=== PATIENT | female | born 1935 | race Caucasian/White ===

== ENCOUNTER 2017-12-29 16:26 | Inpatient (IN) | payer OTHER, MEDICARE ==
[~2017-12-29] VITALS: Ht 167.6 cm; Wt 75.0 kg
[2017-12-29 16:32] VITALS: BP_SYST 21; BP_SYST 211; BP_DIAS 99; PULSE 69; RESP 20; TEMP 98.3; O2SAT 93
[2017-12-29 16:38] VITALS: BP 203/79; PULSE 68; RESP 18; O2SAT 95
--- NOTE | 2017-12-29 16:45 | PD ---
HPI Chief Complaint: Fall Time Seen by Provider: 16:38 Travel History International Travel<30 days: No Contact w/Intl Traveler<30days: No Traveled to known affect area: No History of Present Illness HPI 82-year-old funys-huny-whkxatgg female with PMH of HTN presents to the ED for evaluation of 8/10 right arm pain. Pain is constant, sharp, worsened by attempted ROM. No alleviating factors reported. Onset approximately 45 minutes before arrival after the patient lost her balance and fell onto her right side on tile floor. She denies hitting her head or loss of consciousness. She does not take blood thinners. She has never injured the extremity before. Per EMS report she received 4 mg of morphine in route. She states that she went to a menu tasting around 2pm. PFSH Social History Tobacco Use: No Allergies-Medications (Allergen,Severity, Reaction): Coded Allergies: No Known Allergies (Verified Allergy, Unknown, 12/29/17) Reported Meds & Prescriptions Reported Meds & Active Scripts Active Reported Hydrochlorothiazide 12.5 Mg Cap 12.5 Mg PO DAILY Xanax (Alprazolam) 0.25 Mg Tab 0.25 Mg PO TID Vasotec (Enalapril Maleate) 20 Mg Tab 20 Mg PO BID Lovastatin 20 Mg Tab 20 Mg PO HS Omeprazole 20 Mg Tab 20 Mg PO DAILY Restoril (Temazepam) 30 Mg Cap 30 Mg PO HS PRN Synthroid (Levothyroxine Sodium) 75 Mcg Tab 75 Mcg PO DAILY Zyloprim (Allopurinol) 100 Mg Tab 100 Mg PO DAILY Calcitriol 0.25 Mcg Cap 0.25 Mcg PO DAILY Tenormin (Atenolol) 50 Mg Tab 50 Mg PO DAILY Hydrocodone-Acetamin 10-325 mg (Hydrocodone/Acetaminophen) 10 Mg-325 Mg Tablet 1 Tab PO Q8HR PRN Review of Systems Except as stated in HPI: all other systems reviewed are Neg Physical Exam Narrative GENERAL: Well-nourished, well-developed obese withe female in NAD. SKIN: Focused skin assessment warm/dry. HEAD: Normocephalic. EYES: No scleral icterus. No injection or drainage. NECK: Supple, trachea midline. No JVD or lymphadenopathy. CARDIOVASCULAR: Regular rate and rhythm without murmurs, gallops, or rubs. RESPIRATORY: Breath sounds equal bilaterally. No accessory muscle use. GASTROINTESTINAL: Abdomen soft, non-tender, nondistended. MUSCULOSKELETAL: No cyanosis, or edema. FOCUSED RIGHT UPPER EXTREMITY EXAM: 2+ radial pulse. Patient is able to wiggle the fingers. Tender to palpation with visible deformity in the mid humeral area. The right arm is in a sling which limits the exam. Neurovascularly intact distally. BACK: Nontender without obvious deformity. No CVA tenderness. Data Data Last Documented VS Vital Signs Date Time Temp Pulse Resp B/P (MAP) Pulse Ox O2 Delivery O2 Flow Rate FiO2 12/29/17 18:19 16 12/29/17 16:42 Room Air 12/29/17 16:38 68 203/79 (120) 95 12/29/17 16:32 98.3 Orders Orders Humerus (Min 2vws) (12/29/17 16:41) Ice/Cold Pack (12/29/17 16:41) Morphine Inj (Morphine Inj) (12/29/17 17:30) Ondansetron Inj (Zofran Inj) (12/29/17 17:38) Ondansetron Inj (Zofran Inj) (12/29/17 17:45) NPO (12/29/17 17:43) Morphine Inj (Morphine Inj) (12/29/17 18:30) Electrocardiogram (12/29/17 18:43) Complete Blood Count With Diff (12/29/17 18:43) Comprehensive Metabolic Panel (12/29/17 18:43) Prothrombin Time / Inr (Pt) (12/29/17 18:43) Act Partial Throm Time (Ptt) (12/29/17 18:43) Urinalysis - C+S If Indicated (12/29/17 18:43) Type And Screen (12/29/17 18:43) Chest, Single Ap (12/29/17 18:43) Iv Access Insert/Monitor (12/29/17 18:43) Oximetry (12/29/17 18:43) Ecg Monitoring (12/29/17 18:43) Consult Orthopedic (12/29/17 ) Support Splint (12/29/17 18:49) (Hub Use Only)Inp Phy Cons/Ref (12/29/17 ) Atenolol (Tenormin) (12/30/17 09:00) Enalapril (Vasotec) (12/29/17 21:00) Hydrochlorothiazide (Microzide) (12/30/17 09:00) Levothyroxine (Synthroid) (12/30/17 06:00) Pravastatin (Pravachol) (12/29/17 21:00) (Nf) Omeprazole (12/30/17 09:00) Admit To Inpatient (12/29/17 ) Vital Signs (Adult) Q4H (12/29/17 19:19) Activity Oob With Assistance (12/29/17 19:19) Diet Npo (12/30/17 Breakfast) Sodium Chlor 0.9% 1000 Ml Inj (Ns 1000 M (12/29/17 19:19) Sodium Chloride 0.9% Flush (Ns Flush) (12/29/17 19:30) Sodium Chloride 0.9% Flush (Ns Flush) (12/29/17 21:00) Acetaminophen (Tylenol) (12/29/17 19:30) Ondansetron Inj (Zofran Inj) (12/29/17 19:30) Basic Metabolic Panel (Bmp) (12/30/17 06:00) Complete Blood Count With Diff (12/30/17 06:00) Pt Request For Service (12/29/17 19:19) Case Management Consult (12/29/17 19:19) Scd Bilateral/Knee High SATHYA.BID (12/29/17 19:19) Naloxone Inj (Narcan Inj) (12/29/17 19:30) Docusate Sodium-Senna (Jamia-Colace) (12/29/17 21:00) Magnesium Hydroxide Liq (Milk Of Magnesi (12/29/17 19:30) Sennosides (Senokot) (12/29/17 19:30) Bisacodyl Supp (Dulcolax Supp) (12/29/17 19:30) Lactulose Liq (Lactulose Liq) (12/29/17 19:30) Inpatient Certification (12/29/17 ) Morphine Inj (Morphine Inj) (12/29/17 19:30) Admit Order (Ed Use Only) (12/29/17 19:24) Labs Laboratory Tests Test 12/29/17 18:50 White Blood Count 7.9 TH/MM3 Red Blood Count 4.41 MIL/MM3 Hemoglobin 13.6 GM/DL Hematocrit 40.7 % Mean Corpuscular Volume 92.2 FL Mean Corpuscular Hemoglobin 30.9 PG Mean Corpuscular Hemoglobin Concent 33.5 % Red Cell Distribution Width 14.8 % Platelet Count 170 TH/MM3 Mean Platelet Volume 7.9 FL Neutrophils (%) (Auto) 55.0 % Lymphocytes (%) (Auto) 39.3 % Monocytes (%) (Auto) 3.3 % Eosinophils (%) (Auto) 2.1 % Basophils (%) (Auto) 0.3 % Neutrophils # (Auto) 4.4 TH/MM3 Lymphocytes # (Auto) 3.1 TH/MM3 Monocytes # (Auto) 0.3 TH/MM3 Eosinophils # (Auto) 0.2 TH/MM3 Basophils # (Auto) 0.0 TH/MM3 CBC Comment DIFF FINAL Differential Comment Prothrombin Time 10.5 SEC Prothromb Time International Ratio 1.0 RATIO Activated Partial Thromboplast Time 23.9 SEC Blood Urea Nitrogen 28 MG/DL Creatinine 1.22 MG/DL Random Glucose 106 MG/DL Total Protein 6.9 GM/DL Albumin 3.7 GM/DL Calcium Level 9.6 MG/DL Alkaline Phosphatase 54 U/L Aspartate Amino Transf (AST/SGOT) 20 U/L Alanine Aminotransferase (ALT/SGPT) 18 U/L Total Bilirubin 0.3 MG/DL Sodium Level 141 MEQ/L Potassium Level 4.2 MEQ/L Chloride Level 105 MEQ/L Carbon Dioxide Level 30.4 MEQ/L Anion Gap 6 MEQ/L Estimat Glomerular Filtration Rate 42 ML/MIN MDM Medical Decision Making Medical Screen Exam Complete: Yes Emergency Medical Condition: Yes Differential Diagnosis Fracture versus dislocation versus musculoskeletal pain versus other Narrative Course 82-year-old nyyve-jvdo-ztyuqual female with PMH of HTN presents to the ED for evaluation of 8/10 right arm pain. Onset approximately 45 minutes before arrival after the patient lost her balance and fell onto her right side on tile floor. She denies hitting her head or loss of consciousness. She does not take blood thinners. Vitals reviewed. Patient hypertensive on presentation. The right arm is in a sling. She has good distal pulses and is neurovascularly intact with unable to wiggle the fingers distally. She does have visible deformity of the upper arm. IV was established. Patient was administered 2 mg morphine IV and a dose of Zofran IV. X-ray reveals a spiral, displaced, impacted fracture of the midshaft of the humerus by my read. I communicated with Dr. Mosley. He reviewed the images with Dr. Pathak would like the patient admitted to the medicine service. Dr. Pathak will see the patient in the morning. I discussed this plan with the patient who is agreeable. Preoperative workup was ordered and pending at this time. I spoke with Dr. Duran who agrees to accept the patient to the medicine service. Please see medicine and orthopedic notes for disposition. Mariana Ann Dec 29, 2017 16:45
[2017-12-29] MEDS ORDERED: ALPR.25 PO (17:16)
[2017-12-29] MEDS ORDERED: LEVO.075 PO (17:16)
[2017-12-29] MEDS ORDERED: HYDR-3583 PO (17:16)
[2017-12-29] MEDS ORDERED: ALLO100 PO (17:16)
[2017-12-29] MEDS ORDERED: CALC0.25 PO (17:16)
[2017-12-29] MEDS ORDERED: ATEN1TAB74 PO (17:16)
[2017-12-29] MEDS ORDERED: HYDR12.57 PO (17:16)
[2017-12-29] MEDS ORDERED: REST30CA PO (17:16)
[2017-12-29] MEDS ORDERED: LOVA20TA PO (17:16)
[2017-12-29] MEDS ORDERED: OMEP20TA93 PO (17:16)
[2017-12-29] MEDS ORDERED: ENAL20TA81 PO (17:16)
[2017-12-29] MEDS ORDERED: MORPHINE SULFATE 2 MG/ML INJ IV PUSH ONE ×2 (17:30→18:30)
[2017-12-29] MEDS ORDERED: ONDANSETRON HCL 4 MG/2 ML VIAL ONE (17:38)
[2017-12-29] MEDS ORDERED: ONDANSETRON HCL 4 MG/2 ML VIAL IV PUSH ONE (17:45)
--- NOTE | 2017-12-29 17:59 | RADRPT ---
EXAM DATE/TIME: 12/29/2017 17:15 [facility] COMPARISON: No previous studies available for comparison. INDICATIONS : Right humerus pain post fall today. MEDICAL HISTORY : None. SURGICAL HISTORY : None. ENCOUNTER: Initial ACUITY: 1 day PAIN SCORE: 10/10 LOCATION: Right humerus. FINDINGS: 4 images of the right humerus are obscured by artifact from a splint. There is an acute spiral type f racture involving the proximal diaphysis. 2 cm of displacement observed. Soft tissues are unremarkabl e. CONCLUSION: Acute proximal diaphyseal fracture. Stephen Randolph Jr., MD on December 29, 2017 at 17:52 Board Certified Radiologist. This report was verified electronically.
[2017-12-29 19:15] LABS: AUTOMATED NEUTROPHIL # 4.4 TH/MM3 (1.8-7.7); BASOPHIL % 0.3 % (0.0-2.0); EOSINOPHIL # 0.2 TH/MM3 (0-0.4); EOSINOPHIL % 2.1 % (0.0-4.0); HEMATOCRIT 40.7 % (35.0-46.0); HEMOGLOBIN 13.6 GM/DL (11.6-15.3); LYMPH % 39.3 % (9.0-44.0); LYMPHOCYTE # 3.1 TH/MM3 (1.0-4.8); MEAN CELL VOLUME 92.2 FL (80.0-100.0); MEAN CORPUSCULAR HEMOGLOBIN 30.9 PG (27.0-34.0); MEAN CORPUSCULAR HGB CONC 33.5 % (32.0-36.0); MEAN PLATELET VOLUME 7.9 FL (7.0-11.0); MONO % 3.3 % (0.0-8.0); MONOCYTE # 0.3 TH/MM3 (0-0.9); PLATELET COUNT 170 TH/MM3 (150-450); RED BLOOD COUNT 4.41 MIL/MM3 (4.00-5.30); RED CELL DISTRIBUTION WIDTH 14.8 % (11.6-17.2); WHITE BLOOD COUNT 7.9 TH/MM3 (4.0-11.0)
[2017-12-29 19:23] LABS: PROTHROMBIN TIME - PATIENT 10.5 SEC (9.8-11.6)
[2017-12-29 19:27] LABS: ALBUMIN 3.7 GM/DL (3.4-5.0); AST (GOT) 20 U/L (15-37); BICARBONATE 30.4 MEQ/L (21.0-32.0); BLOOD UREA NITROGEN 28 MG/DL (7-18); CALCIUM 9.6 MG/DL (8.5-10.1); CHLORIDE 105 MEQ/L (98-107); CREATININE 1.22 MG/DL (0.50-1.00); GLOMERULAR FILTRATION RATE 42 ML/MIN (>89); GLUCOSE,RANDOM 106 MG/DL (74-106); SODIUM (NA) 141 MEQ/L (136-145)
[2017-12-29 19:28] LABS: ALT (GPT) 18 U/L (10-53)
[2017-12-29 19:30] LABS: ALKALINE PHOSPHATASE 54 U/L (45-117); TOTAL BILIRUBIN ADULT 0.3 MG/DL (0.2-1.0); TOTAL PROTEIN 6.9 GM/DL (6.4-8.2)
[2017-12-29] MEDS ORDERED: LACTULOSE SYRUP 20 GM/30 ML CUP PO PRN (19:30)
[2017-12-29] MEDS ORDERED: MAGNESIUM HYDROXIDE SUSP 30 ML CUP PO PRN (19:30)
[2017-12-29] MEDS ORDERED: MORPHINE SULFATE 2 MG/ML INJ IV PUSH PRN (19:30)
[2017-12-29] MEDS ORDERED: ACETAMINOPHEN 325 MG TAB PO PRN (19:30)
[2017-12-29] MEDS ORDERED: SODIUM CHLORIDE 0.9% FLUSH 10 ML FLUSH IV FLUSH PRN (19:30)
[2017-12-29] MEDS ORDERED: SENNOSIDES 8.6 MG TAB PO PRN (19:30)
[2017-12-29] MEDS ORDERED: ONDANSETRON HCL 4 MG/2 ML VIAL IVP PRN (19:30)
[2017-12-29] MEDS ORDERED: NALOXONE HCL 0.4 MG/ML AMP IV PUSH PRN (19:30)
[2017-12-29] MEDS ORDERED: BISACODYL 10 MG SUPP RECTAL PRN (19:30)
[2017-12-29] MEDS: SODIUM CHLOR 0.9% 1000 ML INJ 1,000 ML IV SCH (19:37)
[2017-12-29] MEDS ORDERED: SODIUM CHLORID 0.9% 500 ML INJ 500 ML IV ONE (19:45)
--- NOTE | 2017-12-29 20:03 | RADRPT ---
EXAM DATE/TIME: 12/29/2017 19:34 [facility] COMPARISON: No previous studies available for comparison. INDICATIONS : Evaluate for pneumonia, pneumothorax and communicable diseases. Pre-op for humerus surgery. MEDICAL HISTORY : Hypertension. SURGICAL HISTORY : None. ENCOUNTER: Initial ACUITY: 1 day PAIN SCORE: 0/10 LOCATION: Bilateral chest FINDINGS: The heart is enlarged. Right medial basilar opacity is noted consistent with atelectasis, consolidati on or possible prominent epicardial fat pad. No pulmonary edema is noted. Degenerative changes are no sp throughout the thoracic spine. CONCLUSION: 1. Right medial basilar opacity consistent with atelectasis, consolidation or possible prominent epic ardial fat-pad. 2. Cardiomegaly. 3. Degenerative changes throughout the thoracic spine. Marcus Garcia MD on December 29, 2017 at 19:58 Board Certified Radiologist. This report was verified electronically.
--- NOTE | 2017-12-29 20:45 | HHI.HP ---
[facility] Unknown Admission Diagnosis right midshaft humeral fracture Diagnoses: Travel History International Travel<30 Days: No Contact w/Intl Traveler <30 Da: No Traveled to Known Affected Are: No History of Present Illness 82-year-old female with a past medical history significant for hypertension and hypothyroidism presents to the emergency department after suffering a fall at work. The patient reports she was getting out of an elevator when she fell. She is unsure what part of her body she fell onto and does not know if she fell onto an outstretched arm or to the side. She denies loss of consciousness or head trauma. She reports that after suffering a fall she was unable to move her right arm. She denies any other symptoms such as dizziness or lightheadedness. No chest pain/shortness of breath. Review of Systems Except as stated in HPI: all other systems reviewed are Neg Pain in right upper extremity Past Family Social History Past Medical History Hypertension Hypothyroidism Past Surgical History Cholecystectomy Hysterectomy Reported Medications Reported Meds & Active Scripts Active Reported Hydrochlorothiazide 12.5 Mg Cap 12.5 Mg PO DAILY Xanax (Alprazolam) 0.25 Mg Tab 0.25 Mg PO TID Vasotec (Enalapril Maleate) 20 Mg Tab 20 Mg PO BID Lovastatin 20 Mg Tab 20 Mg PO HS Omeprazole 20 Mg Tab 20 Mg PO DAILY Restoril (Temazepam) 30 Mg Cap 30 Mg PO HS PRN Synthroid (Levothyroxine Sodium) 75 Mcg Tab 75 Mcg PO DAILY Zyloprim (Allopurinol) 100 Mg Tab 100 Mg PO DAILY Calcitriol 0.25 Mcg Cap 0.25 Mcg PO DAILY Tenormin (Atenolol) 50 Mg Tab 50 Mg PO DAILY Hydrocodone-Acetamin 10-325 mg (Hydrocodone/Acetaminophen) 10 Mg-325 Mg Tablet 1 Tab PO Q8HR PRN Allergies: Coded Allergies: No Known Allergies (Verified Allergy, Unknown, 12/29/17) Family History Mother with diabetes mellitus Social History Remote history of smoking. Occasional alcohol. Denies illicit drugs. Physical Exam Vital Signs Vital Signs Date Time Temp Pulse Resp B/P (MAP) Pulse Ox O2 Delivery O2 Flow Rate FiO2 12/29/17 18:19 16 12/29/17 16:42 Room Air 12/29/17 16:38 68 18 203/79 (120) 95 Room Air 12/29/17 16:32 98.3 69 20 211/99 (136) 93 Physical Exam GENERAL: female sitting up in bed SKIN: No rashes, ecchymoses or lesions. Cool and dry. HEAD: Atraumatic. Normocephalic. No temporal or scalp tenderness. EYES: Pupils equal round and reactive. Extraocular motions intact. No scleral icterus. No injection or drainage. ENT: Nose without bleeding, purulent drainage or septal hematoma. Throat without erythema, tonsillar hypertrophy or exudate. Uvula midline. Airway patent. NECK: Trachea midline. No JVD or lymphadenopathy. Supple, nontender, no meningeal signs. CARDIOVASCULAR: Regular rate and rhythm without murmurs, gallops, or rubs. RESPIRATORY: Clear to auscultation. Breath sounds equal bilaterally. No wheezes , rales, or rhonchi. GASTROINTESTINAL: Abdomen soft, non-tender, nondistended. No hepato-splenomegaly , or palpable masses. No guarding. MUSCULOSKELETAL: 2+ pitting edema to the midshin. Patient reports this is chronic. No calf tenderness. Right upper extremity immobilized in a sling. Able to move all 5 fingers on right hand. Neurovascularly intact. NEUROLOGICAL: Awake and alert. Cranial nerves II through XII intact. Motor and sensory grossly within normal limits. Normal speech. Laboratory Laboratory Tests Test 12/29/17 18:50 White Blood Count 7.9 Red Blood Count 4.41 Hemoglobin 13.6 Hematocrit 40.7 Mean Corpuscular Volume 92.2 Mean Corpuscular Hemoglobin 30.9 Mean Corpuscular Hemoglobin Concent 33.5 Red Cell Distribution Width 14.8 Platelet Count 170 Mean Platelet Volume 7.9 Neutrophils (%) (Auto) 55.0 Lymphocytes (%) (Auto) 39.3 Monocytes (%) (Auto) 3.3 Eosinophils (%) (Auto) 2.1 Basophils (%) (Auto) 0.3 Neutrophils # (Auto) 4.4 Lymphocytes # (Auto) 3.1 Monocytes # (Auto) 0.3 Eosinophils # (Auto) 0.2 Basophils # (Auto) 0.0 CBC Comment DIFF FINAL Differential Comment Prothrombin Time 10.5 Prothromb Time International Ratio 1.0 Activated Partial Thromboplast Time 23.9 Blood Urea Nitrogen 28 Creatinine 1.22 Random Glucose 106 Total Protein 6.9 Albumin 3.7 Calcium Level 9.6 Alkaline Phosphatase 54 Aspartate Amino Transf (AST/SGOT) 20 Alanine Aminotransferase (ALT/SGPT) 18 Total Bilirubin 0.3 Sodium Level 141 Potassium Level 4.2 Chloride Level 105 Carbon Dioxide Level 30.4 Anion Gap 6 Estimat Glomerular Filtration Rate 42 Result Diagram: 12/29/17184912/29/171849 Caprini VTE Risk Assessment Caprini VTE Risk Assessment: Mod/High Risk (score >= 2) Caprini Risk Assessment Model Point Value = 1 Point Value = 2 Point Value = 3 Point Value = 5 Age 41-60 Minor surgery BMI > 25 kg/m2 Swollen legs Varicose veins or History of unexplained or recurrent spontaneous Oral contraceptives or hormone replacement Sepsis (< 1 month) Serious lung disease, including pneumonia (< 1 month) Abnormal pulmonary function Acute myocardial infarction Congestive heart failure (< 1 month) History of inflammatory bowel disease Medical patient at bed rest Age 61-74 Arthroscopic surgery Major open surgery (> 45 min) Laparoscopic surgery (> 45 min) Malignancy Confined to bed (> 72 hours) Immobilizing plaster cast Central venous access Age >= 75 History of VTE Family history of VTE Factor V Leiden Prothrombin [id number] Lupus anticoagulant Anticardiolipin antibodies Elevated serum homocysteine Heparin-induced thrombocytopenia Other congenital or acquired thrombophilia Stroke (< 1 month) Elective arthroplasty Hip, pelvis, or leg fracture Acute spinal cord injury (< 1 month) Prophylaxis Regimen Total Risk Factor Score Risk Level Prophylaxis Regimen 0-1 Low Early ambulation 2 Moderate Order ONE of the following: *Sequential Compression Device (SCD) *Heparin 5000 units SQ BID 3-4 Higher Order ONE of the following medications: *Heparin 5000 units SQ TID *Enoxaparin/Lovenox 40 mg SQ daily (WT < 150 kg, CrCl > 30 mL/min) *Enoxaparin/Lovenox 30 mg SQ daily (WT < 150 kg, CrCl > 10-29 mL/min) *Enoxaparin/Lovenox 30 mg SQ BID (WT < 150 kg, CrCl > 30 mL/min) AND/OR *Sequential Compression Device (SCD) 5 or more Highest Order ONE of the following medications: *Heparin 5000 units SQ TID (Preferred with Epidurals) *Enoxaparin/Lovenox 40 mg SQ daily (WT < 150 kg, CrCl > 30 mL/min) *Enoxaparin/Lovenox 30 mg SQ daily (WT < 150 kg, CrCl > 10-29 mL/min) *Enoxaparin/Lovenox 30 mg SQ BID (WT < 150 kg, CrCl > 30 mL/min) AND *Sequential Compression Device (SCD) Assessment and Plan Assessment and Plan Assessment/plan: 1. Right humeral fracture X-ray significant for acute proximal diaphyseal fracture of the right humerus Nothing by mouth Orthopedic surgery consulted, appreciate recommendations Morphine for pain PT consulted 2. LD BUN/creatinine 28/1.22, no baseline for comparison IV fluid hydration Monitor renal function 3. Hypertension/hypothyroidism hyperlipidemia Continue home medications FEN NPO NS at 100 cc/hr Electrolytes: monitor and replete prn SCDs Physician Certification 2 Midnight Certification Type: Admission for Inpatient Services Order for Inpatient Services The services are ordered in accordance with Medicare regulations or non- Medicare payer requirements, as applicable. In the case of services not specified as inpatient-only, they are appropriately provided as inpatient services in accordance with the 2-midnight benchmark. Estimated LOS (days): 2 2 days is the estimated time the patient will need to remain in the hospital, assuming treatment plan goals are met and no additional complications. Post-Hospital Plan: Not yet determined Domi Duran MD Dec 29, 2017 20:45
[2017-12-29 21:45] VITALS: BP 186/97; PULSE 73; RESP 17; TEMP 97.2; O2SAT 93
[2017-12-29] MEDS: ENALAPRIL MALEATE 10 MG TAB PO SCH (21:51)
[2017-12-29] MEDS: PRAVASTATIN SOD 20 MG TAB PO SCH (21:51)
[2017-12-29] MEDS: SODIUM CHLORIDE 0.9% FLUSH 10 ML FLUSH IV FLUSH SCH (21:51)
[2017-12-29] MEDS: DOCUSATE SODIUM 50 MG/SENNA 8.6 MG TAB PO SCH (21:51)
[2017-12-29] MEDS ORDERED: LACTATED RINGER'S 1000 ML IV PRN (22:00)
[2017-12-29] MEDS ORDERED: POVIDONE IODINE 5% (ANTISEPSIS KIT) 4 APPLICATIONS EACH NARE PRN (22:00)
[2017-12-29] MEDS ORDERED: MORPHINE SULFATE 4 MG/ML INJ IV PUSH ONE (22:00)
[2017-12-29] MEDS ORDERED: CHLORHEXIDINE GLUCONATE 2 % 1 PACK (2 CLOTHS) TOPICAL PRN (22:00)
[2017-12-29] MEDS ORDERED: SODIUM CHLORID 0.9% 500 ML IV PRN (22:00)
[2017-12-29] MEDS: HYDROmorphone HCL PF 2 MG/ML VIAL IV PUSH PRN (22:03)
[2017-12-30 00:30] VITALS: BP 154/83; PULSE 67; RESP 18; TEMP 96.9; O2SAT 93
[2017-12-30] MEDS: HYDROmorphone HCL PF 2 MG/ML VIAL IV PUSH PRN (03:39)
[2017-12-30 04:25] VITALS: BP 150/75; PULSE 70; RESP 18; TEMP 97.9; O2SAT 94
[2017-12-30] MEDS: SODIUM CHLOR 0.9% 1000 ML INJ 1,000 ML IV SCH ×2 (05:19→15:19)
[2017-12-30] MEDS: LEVOTHYROXINE SODIUM 75 MCG TAB PO SCH (06:32)
[2017-12-30] MEDS ORDERED: HYDR-3583 PO (07:12)
--- NOTE | 2017-12-30 07:14 | HHI.FF ---
Face to Face Verification Diagnosis: (1) Fracture, humerus closed Occupational Therapy Right UE Weight Bearing: Non WB Right UE Range of Motion: Pendular Nursing Nursing: Dressing changes Dressing Changes: Daily dressing change, Xeroform, Coverderm/Primapore I have seen patient Zayra Keating on 12/30/17. My clinical findings support the need for the requested home health care services because: Ltd mobility - disease progression I certify that my clinical findings support that this patient is homebound because: Post-op weakness Shailesh Fernandez/[employer] PA Dec 30, 2017 07:14
--- NOTE | 2017-12-30 08:08 | MB ---
cc: NAKIA MARIN DATE OF CONSULTATION 12/30/2017 REASON FOR CONSULTATION Right humerus fractures. HISTORY OF PRESENT ILLNESS Ms. Keating is an 82-year-old female. She works at the [employer]. She was coming off the elevator when she slipped and fell. She landed on her right arm. She had immediate right arm pain. She had difficulty moving her arm after the fall. She was able to stand and ambulate. She presented to the emergency room where x-rays revealed a displaced right humerus fracture. She is currently awake and alert on the orthopedic floor. She denies dizziness, syncope or loss of consciousness. Her only complaint is right arm. PAST MEDICAL HISTORY ILLNESSES 1. Hypertension. 2. Hypothyroidism. SURGERIES 1. Cholecystectomy. 2. Hysterectomy MEDICATIONS 1. Hydrochlorothiazide. 2. Xanax. 3. Vasotec. 4. Lovastatin. 5. Omeprazole. 6. Restoril. 7. Synthroid. 8. Zyloprim. 9. Calcitriol. 10.Tenormin. 11.Hydrocodone. ALLERGIES No known drug allergies. FAMILY HISTORY Positive for diabetes in her mother. SOCIAL HISTORY The patient denies drug use. She has not smoked recently. She drinks occasionally. REVIEW OF SYSTEMS The patient denies headache, visual changes, neck pain, chest pain, shortness of breath, abdominal pain, nausea, vomiting or recent weight loss, fever, chills, numbness or tingling of extremities or incontinence. She complains of right arm pain. Pain is worse with movement. PHYSICAL EXAMINATION GENERAL: The patient is a pleasant 82-year-old female. She is awake and alert. She is alert and oriented x3. She is in no acute distress. VITAL SIGNS: Temperature 97.9, pulse 70, respirations 18, blood pressure 150/75. O2 sat is 94% on room air. HEAD: The patient is normocephalic. Pupils are equal. NECK: Soft, nontender. Trachea is midline. ABDOMEN: Soft, nontender, nondistended. EXTREMITIES: Examination of right arm reveals diffuse tenderness around her shoulder and humerus. She has pain with any attempt at shoulder motion. She has intact sensation in all fingers. She is able to gently flex and extend all fingers. She has good capillary refill in all fingers. Examination of left arm reveals no pain with shoulder, elbow or wrist motion. She has intact sensation in all fingers. She has good capillary refill in all fingers. Skin is intact. Examination of bilateral lower extremities reveals no pain with hip, knee or ankle motion. Skin is intact to both feet. Dorsalis pedis pulses are palpable. Skin is intact. X-RAYS X-rays of right arm were reviewed. X-rays reveal a displaced midshaft humerus fracture. There is a fracture line that extends up to the humeral neck. LABORATORY The patient has a white blood cell count of 7.9, hematocrit of 40.7 and hemoglobin of 13.6. Her INR is 1.0. Her BUN is 28 and creatinine is 1.22. IMPRESSION 1. Hypertension. 2. Hypothyroidism. 3. Displaced right humerus shaft fracture with extension up to the humeral neck. PLAN The treatment options were discussed with the patient. X-rays and lab results were reviewed. At this point I discussed surgical and nonsurgical options. The surgical options include intramedullary nail fixation versus open reduction, internal fixation of right humerus. The risks of surgery include bleeding, infection, injuries to arteries, nerves and blood vessels, injury to radial nerve, loss of motion, stiffness of the shoulder and elbow, as well as medical complications including blood clot, stroke, heart attack and . All questions were answered. The patient would like to proceed with surgery. I will plan on surgery today. A mid-level provider in my office, nurse practitioner or PA, may see this patient on a follow-up basis and continue to implement the objective of this plan including: Starting or adjusting medications, injections of muscle, tendon, bursa or joints, cast application, orthotic or brace application, physical therapy, further radiographic studies including x-ray, MRI, CT, ultrasounds or bone scan, vascular studies, neurologic studies, or other specialist consultations, and proceeding with surgical management as appropriate. MD SHANICE Paul/BRITTNEY /6:28 AM /7:57 AM
[2017-12-30] MEDS ORDERED: ceFAZolin INJ 1,000 MG VIAL ONE (08:31)
[2017-12-30] MEDS ORDERED: VANCOMYCIN HCL 1000 MG VIAL ONE (08:31)
[2017-12-30] MEDS ORDERED: GENTAMICIN SULFATE 80 MG/2 ML VIAL ONE (08:32)
[2017-12-30] MEDS: HYDROCHLOROTHIAZIDE 12.5 MG CAP PO SCH (09:00)
[2017-12-30] MEDS ORDERED: NON-FORMULARY DRUG (Omeprazole 20 MG) PO SCH (09:00)
[2017-12-30] MEDS: ATENOLOL 50 MG TAB PO SCH (09:00)
[2017-12-30] MEDS: PANTOPRAZOLE SOD 20 MG DELAYED RELEASE TAB PO SCH (09:00)
[2017-12-30] MEDS: SODIUM CHLORIDE 0.9% FLUSH 10 ML FLUSH IV FLUSH SCH ×2 (09:00→21:25)
[2017-12-30] MEDS: DOCUSATE SODIUM 50 MG/SENNA 8.6 MG TAB PO SCH ×2 (09:00→21:22)
[2017-12-30] MEDS: ENALAPRIL MALEATE 10 MG TAB PO SCH ×2 (09:00→21:22)
--- NOTE | 2017-12-30 09:53 | EKG ---
Date Performed: 12/29/2017 Time Performed: 22:11:04 PTAGE: 82 years EKG: Sinus rhythm MARKED LEFT AXIS DEVIATION ANTEROSEPTAL MYOCARDIAL INFARCTION , OF INDETERMINATE AGE ABNORMAL ECG Si nce the prior tracing, there has been no significant change PREVIOUS TRACING : 11/08/2000 00.25 DOCTOR: Justice Gr Interpretating Date/Time 12/30/2017 09:48:33
--- NOTE | 2017-12-30 09:55 | PD.OP ---
cc: Edward Starr MD Operative Report Date of Surgery: Dec 30, 2017 Preoperative Diagnosis: Displaced right humeral shaft fracture, right humeral neck fracture Postoperative Diagnosis: Procedure: Open reduction internal fixation right humeral shaft, open reduction fixation right humeral neck fracture Anesthesia: Gen. Surgeon: Edward Starr [employer]ing Plant Operator(s): SUDHEER Dozier PA-C The surgical procedure was assisted by my physician human services assistant. My P.A. presence was necessary throughout this case for the manipulation and positioning of the surgical extremity. My P.A. was assisting me throughout the duration of this procedure. The skill set of a physician human services assistant was medically necessary to complete this procedure. During the surgical case the surgical pathologist was working at the back table and the physician human services assistant was directly assisting me. Operation and Findings: Patient was seen and evaluated preoperatively. Treatment options were discussed regarding her right humerus fractures including surgical and nonsurgical treatments. After detailed discussion of risk and benefits of procedure patient wishes to proceed with surgery. Risks of surgery include bleeding, infection, nonunion, malunion, painful hardware, loss of motion of shoulder and elbow, weakness and numbness of arm, as well as medical competitions including blood clots stroke and . Patient was brought to operating room and placed on the OR table. GETA was administered by anesthesiologist. Operative arm and shoulder were prepped with alcohol followed by Hibiclens and draped usual sterile fashion. Timeout procedure was performed. IV antibiotics were given prior to incision. A standard anterior approach was utilized. Proximally the deltopectoral interval was opened. Subcutaneous tissues was dissected with Bovie. Cephalic vein was identified and protected. Distally the brachialis was split. The fracture was identified. There was an area of comminution. Soft tissue was removed from the fracture site. Fracture site was cleaned with curettes. At this point attention was turned towards the proximal humerus fracture. There was a split that ran all the way up through the humeral neck. This fracture was reduced. Anatomic alignment was achieved. K wires were used to hold provisional fixation. Additional 2.7 cortical lag screws were used to compress fracture fragments. Next attention was turned to the humeral shaft fracture. The humeral shaft was reduced to the proximal segment. At this point the fracture was reduced using fracture tenaculums. Multiplanar fluoroscopy confirmed excellent of fracture. A long proximal humerus Synthes 3.5 plate was contoured to fit the humerus. This plate was used to span all fracture lines. Plate was provisionally held the bone with K wires. 3.5 cortical screws were placed on each side of the fracture. The screws were placed to add compression to fracture. Multiple screws were placed in each side of the fracture. Multiple locking screws were placed in the humeral head proximally. All screws were predrilled and premeasured for appropriate length. Final fluoroscopy revealed excellent alignment of fracture with well-placed hardware. Incision was thoroughly irrigated. Fascia was closed with #1 Vicryl, subcutaneous tissues closed with 3 -0 Vicryl, and skin was closed with dyan. Sterile dressings were applied. Needle and sponge counts were correct. Patient was placed into a sling, and then transferred to recovery room in stable condition Edward Starr MD Dec 30, 2017 09:55
[2017-12-30] MEDS ORDERED: diphenhydrAMINE HCL 25 MG CAP PO PRN (10:00)
[2017-12-30] MEDS ORDERED: ERGOCALCIFEROL (VIT D2) 50,000 UNIT CAP PO SCH (10:00)
[2017-12-30] MEDS ORDERED: ACETAMINOPHEN/HYDROcodone 325 MG/7.5 MG TAB PO PRN (10:00)
[2017-12-30] MEDS ORDERED: MORPHINE SULFATE 4 MG/ML INJ IV PUSH PRN (10:00)
[2017-12-30] MEDS ORDERED: *morphine SULFATE 10 MG/ML PERIprocedure ONLY ONE (10:19)
[2017-12-30] MEDS ORDERED: DO NOT ADM ANY ANTICOAGULANT DRUGS PRN (10:22)
[2017-12-30] MEDS ORDERED: *ENALAPRILAT 1.25 MG/ML VIAL PERIprocedural Use ONLY ONE (10:33)
--- NOTE | 2017-12-30 13:10 | RADRPT ---
EXAM DATE/TIME: 12/30/2017 09:38 [facility] COMPARISON: HUMERUS RIGHT (MIN 2VWS), December 29, 2017, 17:15. INDICATIONS : ORIF right humerus fracture. MEDICAL HISTORY : None. SURGICAL HISTORY : None. ENCOUNTER: Subsequent ACUITY: 2 days PAIN SCORE: Non-responsive. LOCATION: Right humerus. FINDINGS: Multiple views of the right humerus were obtained using a matrix camera and demonstrate that the eliz ent is status post open rigid internal fixation with placement of long screw plate fixation device tr ansfixing the proximal to mid humeral fracture. The fracture fragments are in anatomic alignment. The re is soft tissue swelling. CONCLUSION: Status post open rigid internal fixation. Shorty Price MD on December 30, 2017 at 13:06 Board Certified Radiologist. This report was verified electronically.
[2017-12-30] MEDS: CALCIUM/VITAMIN D 250 MG/125 U TAB PO SCH ×2 (13:12→18:21)
[2017-12-30 15:03] LABS: AUTOMATED NEUTROPHIL # 7.3 TH/MM3 (1.8-7.7); BASOPHIL % 0.1 % (0.0-2.0); HEMATOCRIT 36.4 % (35.0-46.0); HEMOGLOBIN 12.2 GM/DL (11.6-15.3); LYMPH % 10.7 % (9.0-44.0); LYMPHOCYTE # 0.9 TH/MM3 (1.0-4.8); MEAN CELL VOLUME 91.6 FL (80.0-100.0); MEAN CORPUSCULAR HEMOGLOBIN 30.8 PG (27.0-34.0); MEAN CORPUSCULAR HGB CONC 33.6 % (32.0-36.0); MONO % 2.1 % (0.0-8.0); MONOCYTE # 0.2 TH/MM3 (0-0.9); NEUT % 87.1 % (16.0-70.0); PLATELET COUNT 152 TH/MM3 (150-450); RED BLOOD COUNT 3.97 MIL/MM3 (4.00-5.30); RED CELL DISTRIBUTION WIDTH 14.8 % (11.6-17.2); WHITE BLOOD COUNT 8.4 TH/MM3 (4.0-11.0)
[2017-12-30 15:34] LABS: BICARBONATE 26.2 MEQ/L (21.0-32.0); CALCIUM 8.3 MG/DL (8.5-10.1); CREATININE 1.3 MG/DL (0.50-1.00)
[2017-12-30 15:43] VITALS: BP 137/64; PULSE 62; RESP 19; TEMP 96.3; O2SAT 98
[2017-12-30] MEDS: ACETAMINOPHEN/HYDROcodone 325 MG/10 MG TAB PO PRN ×2 (16:17→21:22)
[2017-12-30] MEDS: ceFAZolin 2 GM PREMIX 50 ML IV SCH (16:17)
--- NOTE | 2017-12-30 16:43 | HHI.PR ---
Subjective Remarks Surgical repair of right humerus this morning. Patient doing well postop. Hemoglobin showed a downward trend from 13 to 12. No acute concerns. Objective Vital Signs Date Time Temp Pulse Resp B/P (MAP) Pulse Ox O2 Delivery O2 Flow Rate FiO2 12/30/17 15:43 96.3 62 19 137/64 (88) 98 12/30/17 10:45 66 14 162/67 (98) 100 Nasal Cannula 3 12/30/17 10:30 72 23 173/79 (110) 100 Nasal Cannula 3 12/30/17 10:14 97.7 83 17 188/87 (120) 99 Nasal Cannula 3 12/30/17 04:25 97.9 70 18 150/75 (100) 94 12/30/17 00:30 96.9 67 18 154/83 (106) 93 12/29/17 21:45 97.2 73 17 186/97 (126) 93 12/29/17 21:22 12/29/17 18:19 16 12/29/17 16:42 Room Air I/O 12/29/17 12/29/17 12/29/17 12/30/17 12/30/17 12/30/17 07:00 15:00 23:00 07:00 15:00 23:00 Intake Total 0 ml 300 ml Balance 0 ml 300 ml Intake Oral 0 ml 300 ml # Voids 2 1 # Bowel Movements 0 Result Diagram: 12/30/17 1351 12/30/17 1351 Objective Remarks GENERAL: NAD, A&Ox3 HEAD: Normocephalic. NECK: Supple, trachea midline. No lymphadenopathy. EYES: No scleral icterus. No injection or drainage. CARDIOVASCULAR: Regular rate and rhythm without murmurs, gallops, or rubs. RESPIRATORY: Breath sounds equal bilaterally. No accessory muscle use. GASTROINTESTINAL: Abdomen soft, non-tender, nondistended. MUSCULOSKELETAL: No cyanosis, or edema. Right upper arm bandage. SKIN: Warm and dry. NEURO: No focal neurological deficitis. A/P Problem List: (1) Fracture, humerus closed ICD Code: S42.309A - Unspecified fracture of shaft of humerus, unspecified arm , initial encounter for closed fracture Assessment and Plan 82-year-old female admitted secondary to right humerus fracture Right humerus fracture Status post surgical repair Orthopedic surgeons following Continue pain treatments as needed Continue physical therapy Acute kidney injury Monitor renal function Likely related to injury Hypertension Continue baseline treatment Follow blood pressures Adjust treatments as needed Hyperlipidemia Continue present treatment Follow as an outpatient Hypothyroidism Continue supplements Follows in outpatient DVT prophylaxis SCDs Discharge planning Anticipate discharge tomorrow if patient is stable on her feet when working with physical therapy Herb Alfonso MD Dec 30, 2017 16:43
[2017-12-30] MEDS: PRAVASTATIN SOD 20 MG TAB PO SCH (21:22)
[2017-12-30 21:29] VITALS: BP 140/81; PULSE 70; RESP 17; TEMP 98.6; O2SAT 97
[2017-12-30 23:48] VITALS: BP 159/85; PULSE 86; RESP 18; TEMP 96.7; O2SAT 97
[2017-12-31] MEDS: ceFAZolin 2 GM PREMIX 50 ML IV SCH ×2 (00:14→08:02)
[2017-12-31] MEDS: ACETAMINOPHEN/HYDROcodone 325 MG/10 MG TAB PO PRN ×3 (05:22→15:35)
[2017-12-31] MEDS: LEVOTHYROXINE SODIUM 75 MCG TAB PO SCH (05:22)
[2017-12-31 06:32] VITALS: BP 151/74; PULSE 74; RESP 18; TEMP 98.7; O2SAT 96
[2017-12-31 06:58] LABS: AUTOMATED NEUTROPHIL # 6.2 TH/MM3 (1.8-7.7); BASOPHIL % 0.2 % (0.0-2.0); HEMATOCRIT 34.6 % (35.0-46.0); HEMOGLOBIN 11.5 GM/DL (11.6-15.3); LYMPH % 16.9 % (9.0-44.0); LYMPHOCYTE # 1.4 TH/MM3 (1.0-4.8); MEAN CELL VOLUME 92.1 FL (80.0-100.0); MEAN CORPUSCULAR HEMOGLOBIN 30.7 PG (27.0-34.0); MEAN CORPUSCULAR HGB CONC 33.3 % (32.0-36.0); MEAN PLATELET VOLUME 7.9 FL (7.0-11.0); MONO % 5.6 % (0.0-8.0); MONOCYTE # 0.4 TH/MM3 (0-0.9); NEUT % 77.3 % (16.0-70.0); PLATELET COUNT 159 TH/MM3 (150-450); RED BLOOD COUNT 3.76 MIL/MM3 (4.00-5.30); RED CELL DISTRIBUTION WIDTH 14.6 % (11.6-17.2)
--- NOTE | 2017-12-31 07:14 | PD.ORT.PN ---
Subjective Subjective Remarks Resting comfortably with no new complaints Objective Vitals Vital Signs Date Time Temp Pulse Resp B/P (MAP) Pulse Ox O2 Delivery O2 Flow Rate FiO2 12/31/17 06:32 98.7 74 18 151/74 (99) 96 12/30/17 23:48 96.7 86 18 159/85 (109) 97 12/30/17 21:29 98.6 70 17 140/81 (100) 97 12/30/17 17:17 18 12/30/17 15:43 96.3 62 19 137/64 (88) 98 12/30/17 10:45 66 14 162/67 (98) 100 Nasal Cannula 3 12/30/17 10:30 72 23 173/79 (110) 100 Nasal Cannula 3 12/30/17 10:14 97.7 83 17 188/87 (120) 99 Nasal Cannula 3 I/O 12/30/17 12/30/17 12/30/17 12/31/17 12/31/17 12/31/17 07:00 15:00 23:00 07:00 15:00 23:00 Intake Total 0 ml 300 ml 480 ml 480 ml Balance 0 ml 300 ml 480 ml 480 ml Intake Oral 0 ml 300 ml 480 ml 480 ml # Voids 2 1 4 1 # Bowel Movements 0 0 0 Result Diagram: 12/31/17 0617 12/30/17 1351 Imaging Last 72 hours Impressions Humerus X-Ray 12/30/17 0000 Signed Impressions: Service Date/Time: Saturday, December 30, 2017 09:38 - CONCLUSION: Status post open rigid internal fixation. Shorty Price MD Chest X-Ray 12/29/17 1843 Signed Impressions: Service Date/Time: Friday, December 29, 2017 19:34 - CONCLUSION: 1. Right medial basilar opacity consistent with atelectasis, consolidation or possible prominent epicardial fat-pad. 2. Cardiomegaly. 3. Degenerative changes throughout the thoracic spine. Marcus Garcia MD Humerus X-Ray 12/29/17 1641 Signed Impressions: Service Date/Time: Friday, December 29, 2017 17:15 - CONCLUSION: Acute proximal diaphyseal fracture. Stephen Randolph Jr., MD Objective Remarks Right upper extremity: Clean dry dressings intact. Sling in place. Mild to moderate swelling of the arm. Distally intact sensation of the radial ulnar median nerve distributions with good capillary refills. She is able to fully extend her fingers and make a fist Assessment & Plan Assessment and Plan ORIF right humeral shaft fracture POD 1 Nonweightbearing right upper extremity Occupational therapy to demonstrate and educate for pendulum swings. She needs to do this twice a day. Otherwise back into a sling. She understands that she is not to use this arm for any activities. Home health for dressing changes right upper extremity Discharge to home today Follow-up Dr. Starr or [place] in 2 weeks Shorty Paulino Jr. Dec 31, 2017 07:14
[2017-12-31 07:31] LABS: ALBUMIN 3.1 GM/DL (3.4-5.0); ALKALINE PHOSPHATASE 59 U/L (45-117); ALT (GPT) 53 U/L (10-53); AST (GOT) 44 U/L (15-37); BICARBONATE 26.8 MEQ/L (21.0-32.0); BLOOD UREA NITROGEN 20 MG/DL (7-18); CALCIUM 9.3 MG/DL (8.5-10.1); CHLORIDE 106 MEQ/L (98-107); CREATININE 1.24 MG/DL (0.50-1.00); GLOMERULAR FILTRATION RATE 41 ML/MIN (>89); GLUCOSE,RANDOM 125 MG/DL (74-106); SODIUM (NA) 140 MEQ/L (136-145); TOTAL BILIRUBIN ADULT 0.4 MG/DL (0.2-1.0); TOTAL PROTEIN 6.4 GM/DL (6.4-8.2)
[2017-12-31 07:35] VITALS: BP 155/77; PULSE 69; RESP 18; TEMP 97.6; O2SAT 92
[2017-12-31] MEDS: CALCIUM/VITAMIN D 250 MG/125 U TAB PO SCH ×2 (08:03→12:24)
[2017-12-31] MEDS: HYDROCHLOROTHIAZIDE 12.5 MG CAP PO SCH (08:03)
[2017-12-31] MEDS: ATENOLOL 50 MG TAB PO SCH (08:03)
[2017-12-31] MEDS: ENALAPRIL MALEATE 10 MG TAB PO SCH (08:03)
[2017-12-31] MEDS: PANTOPRAZOLE SOD 20 MG DELAYED RELEASE TAB PO SCH (08:03)
[2017-12-31] MEDS: DOCUSATE SODIUM 50 MG/SENNA 8.6 MG TAB PO SCH (08:03)
[2017-12-31] MEDS: SODIUM CHLORIDE 0.9% FLUSH 10 ML FLUSH IV FLUSH SCH (08:13)
[2017-12-31] MEDS ORDERED: DOCU100C15 PO ×2 (08:56→11:30)
[2017-12-31] MEDS ORDERED: CHOLECALCIFEROL (VIT D3) 1000 UNIT TAB PO SCH (09:00)
--- NOTE | 2017-12-31 11:33 | HHI.DS ---
Discharge Summary Admission Date Dec 29, 2017 at 19:26 Discharge Date: Dec 31, 2017 Admitting Diagnosis right midshaft humeral fracture (1) Fracture, humerus closed ICD Code: S42.309A - Unspecified fracture of shaft of humerus, unspecified arm , initial encounter for closed fracture Diagnosis: Principal Procedures Right humerus fracture repair Brief History - From Admission 82-year-old female with a past medical history significant for hypertension and hypothyroidism presents to the emergency department after suffering a fall at work. The patient reports she was getting out of an elevator when she fell. She is unsure what part of her body she fell onto and does not know if she fell onto an outstretched arm or to the side. She denies loss of consciousness or head trauma. She reports that after suffering a fall she was unable to move her right arm. She denies any other symptoms such as dizziness or lightheadedness. No chest pain/shortness of breath. CBC/BMP: 12/31/17 0617 12/31/17 0617 Significant Findings Laboratory Tests Test 12/29/17 18:50 12/30/17 13:51 12/31/17 06:17 Activated Partial Thromboplast Time 23.9 SEC (24.3-30.1) Blood Urea Nitrogen 28 MG/DL (7-18) 22 MG/DL (7-18) 20 MG/DL (7-18) Creatinine 1.22 MG/DL (0.50-1.00) 1.30 MG/DL (0.50-1.00) 1.24 MG/DL (0.50-1.00) Estimat Glomerular Filtration Rate 42 ML/MIN (>89) 39 ML/MIN (>89) 41 ML/MIN (>89) Red Blood Count 3.97 MIL/MM3 (4.00-5.30) 3.76 MIL/MM3 (4.00-5.30) Neutrophils (%) (Auto) 87.1 % (16.0-70.0) 77.3 % (16.0-70.0) Lymphocytes # (Auto) 0.9 TH/MM3 (1.0-4.8) Random Glucose 154 MG/DL (74-106) 125 MG/DL (74-106) Calcium Level 8.3 MG/DL (8.5-10.1) Chloride Level 108 MEQ/L (98-107) Hemoglobin 11.5 GM/DL (11.6-15.3) Hematocrit 34.6 % (35.0-46.0) Albumin 3.1 GM/DL (3.4-5.0) Aspartate Amino Transf (AST/SGOT) 44 U/L (15-37) Hospital Course Mrs. Keating is an 82-year-old female. She was admitted secondary to fracture of the right humerus. This was sustained during a fall after she tripped. Surgical repair was performed and patient is doing well postop. She has demonstrated ability to ambulate without weakness or and with good balance. Patient has been cleared by orthopedic surgeons for discharge to home today. Medically patient is stable in will be discharged today. Pt Condition on Discharge: Good Discharge Disposition: Disch w/ Home Health Serv Discharge Time: <= 30 minutes Discharge Instructions DIET: Follow Instructions for: As Tolerated, No Restrictions Activities you can perform: Non Weight Bearing Follow up Referrals: Orthopedics - 2 Weeks @ [facility] with Edward Pathak MD PCP Follow-up - 2 Weeks New Medications: Docusate Sodium (Docusate Sodium) 100 Mg Cap 100 MG PO BID PRN for CONSTIPATION, #60 CAP 0 Refills Docusate Sodium (Docusate Sodium) 100 Mg Cap 100 MG PO BID PRN for CONSTIPATION, #60 CAP 0 Refills Changed Medications: Hydrocodone/Acetaminophen (Hydrocodone-Acetamin 10-325 mg) 10 Mg-325 Mg Tablet 1 TAB PO Q4HR for Pain Management, #60 TAB (Changed from: Q8HR; Removed Reason) Continued Medications: Allopurinol (Zyloprim) 100 Mg Tab 100 MG PO DAILY for Gout, #30 TAB 0 Refills Alprazolam (Xanax) 0.25 Mg Tab 0.25 MG PO TID for Anxiety, TAB 0 Refills Atenolol (Tenormin) 50 Mg Tab 50 MG PO DAILY for Blood Pressure Management, #30 TAB 0 Refills Calcitriol (Calcitriol) 0.25 Mcg Cap 0.25 MCG PO DAILY for Calcium Supplement, #30 CAP 0 Refills Enalapril (Vasotec) 20 Mg Tab 20 MG PO BID, #30 TAB 0 Refills Hydrochlorothiazide (Hydrochlorothiazide) 12.5 Mg Cap 12.5 MG PO DAILY, #30 CAP 0 Refills Levothyroxine (Synthroid) 75 Mcg Tab 75 MCG PO DAILY for Thyroid, #30 TAB 0 Refills Lovastatin (Lovastatin) 20 Mg Tab 20 MG PO HS for Cholesterol Management, #30 TAB 0 Refills Omeprazole (Omeprazole) 20 Mg Tab 20 MG PO DAILY, #30 TAB 0 Refills Temazepam (Restoril) 30 Mg Cap 30 MG PO HS PRN for INSOMNIA, #30 CAP 0 Refills Herb Alfonso MD Dec 31, 2017 11:33
[2017-12-31 11:50] VITALS: BP 164/72; PULSE 63; RESP 18; TEMP 97.8; O2SAT 96
== END 2017-12-31 15:39 | disposition home health service (06) | DRG 493 ==
LOC: NEPE 16:26 → NEDA 19:26 → N06A 21:15
PROVIDERS: ADMIT Hospitalist; ATTEND Hospitalist
PROC: 0PSF04Z Reposition Right Humeral Shaft with Internal Fixation Device, Open Approach (ICD-10-PCS; 2017-12-30)
PROC: 0PSC04Z Reposition Right Humeral Head with Internal Fixation Device, Open Approach (ICD-10-PCS; principal; 2017-12-30 08:22)
DX: S42.211A Unspecified displaced fracture of surgical neck of right humerus, initial encounter for closed fracture (principal); S42.341A Displaced spiral fracture of shaft of humerus, right arm, initial encounter for closed fracture; N17.9 Acute kidney failure, unspecified; W01.0XXA Fall on same level from slipping, tripping and stumbling without subsequent striking against object, initial encounter; I10 Essential (primary) hypertension; E78.5 Hyperlipidemia, unspecified; E03.9 Hypothyroidism, unspecified; Y99.0 Civilian activity done for income or pay; Z87.891 Personal history of nicotine dependence
CPT/HCPCS: 71045; 73060; 76000; 80048; 80053; 85025; 85610; 85730; 86850; 86900; 86901; 93005; 96374; 96375; C1713; J0690; J1170; J1580; J2270; J2405; J3010; J3370; J7030; J7040; J7120